=== PATIENT | female | born 1985 | race Caucasian/White ===

== ENCOUNTER 2020-02-02 19:39 | Inpatient (IN) | payer OTHER, SELFPAY ==
[2020-02-02 21:08] LABS: Urine Bacteria NONE SEEN /HPF (<20); Urine Culture Reflex Order REFLEXED; Urine Mucus 1+ /HPF (NONE SEEN); Urine RBC NONE SEEN /HPF (NONE SEEN)
[2020-02-02 21:09] LABS: Urine Blood NEGATIVE (NEG); Urine Glucose NEGATIVE (NEG); Urine Protein NEGATIVE (NEG); Urine Specific Gravity 1.015 (1.005-1.030)
[2020-02-02 21:20] LABS: Absolute Lymphocytes (CBC) 2.2 K/uL (0.7-4.9); Basophils % 0.6 % (0-1.3); Hematocrit 32.3 % (36.0-45.0); Lymphocytes % 15.5 % (15.3-44.8); MPV 8.2 fL (7.6-11.3)
[2020-02-02 21:38] LABS: ALT/SGPT 22 U/L (12-78); AST/SGOT 11 U/L (15-37); Albumin 3.5 g/dL (3.4-5.0); Alkaline Phosphatase 92 U/L (45-117); BUN Blood Urea Nitrogen 5 mg/dL (7-18); Bicarbonate 30 mmol/L (21-32); Bilirubin Direct < 0.1 mg/dL (0-0.2); Bilirubin Total 0.2 mg/dL (0.2-1.0); Glucose Level 95 mg/dL (74-106); Lipase 45 U/L (73-393); Protein, Total 7.9 g/dL (6.4-8.2); Sodium Level 137 mmol/L (136-145)
[2020-02-02] MEDS ORDERED: MORPHINE 4 MG/ML SYR ONE ×2 (21:40→23:19)
[2020-02-02] MEDS ORDERED: ONDANSETRON 4 MG/2 ML VIAL ONE (21:40)
[2020-02-02] MEDS ORDERED: PIPER/TAZO/NS 3.375gm 3.375 GM/100 ML BAG ONE (23:04)
--- NOTE | 2020-02-02 23:12 | EDPHYS ---
Physician Documentation [facility] Name: Samantha Hutchison Age: 34 yrs Sex: Female : 1985 Arrival Date: 02/02/2020 Time: 19:43 Bed 15 Private MD: ED Physician Matthew Carmona HPI: 02/01 21:30 This 34 yrs old Female presents to ER via Ambulatory with complaints of Side cp Pain, Fever. 21:30 The patient presents with abdominal pain in the right upper quadrant, right lower cp quadrant. 21:30 Onset: The symptoms/episode began/occurred 5 day(s) ago. Associated signs and symptoms: cp Pertinent positives: fever, Pertinent negatives: chest pain, constipation, diarrhea, dysuria, vomiting. The symptoms are described as constant. 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 - Social history:: Smoking status: Patient reports the use of cigarette tobacco products, smokes one-half pack cigarettes per day. ROS: 21:35 Constitutional: Negative for body aches, chills, fever, poor PO intake. cp 21:35 Eyes: Negative for injury, pain, redness, and discharge. cp 21:35 ENT: Negative for drainage from ear(s), ear pain, sore throat, difficulty swallowing, difficulty handling secretions. 21:35 Cardiovascular: Negative for chest pain. 21:35 Respiratory: Negative for cough, shortness of breath, wheezing. 21:35 Abdomen/GI: Positive for abdominal pain, Negative for vomiting, diarrhea, constipation, black/tarry stool, rectal bleeding. 21:35 Back: Positive for radiated pain, Negative for injury or acute deformity. 21:35 : Negative for urinary symptoms, vaginal bleeding, vaginal discharge. 21:35 Neuro: Negative for altered mental status, headache, weakness. 21:35 All other systems are negative. Exam: 21:45 Constitutional: The patient appears in no acute distress, alert, awake, non-toxic, well cp developed, well nourished, uncomfortable. 21:45 Head/Face: Normocephalic, atraumatic. cp 21:45 Eyes: Periorbital structures: appear normal, Conjunctiva: normal, no exudate, no injection, Sclera: no appreciated abnormality, Lids and lashes: appear normal, bilaterally. 21:45 ENT: External ear(s): are unremarkable, Nose: is normal, Mouth: Lips: moist, Oral mucosa: pink and intact, moist, Posterior pharynx: Airway: no evidence of obstruction, patent. 21:45 Chest/axilla: Inspection: normal, Palpation: is normal, no crepitus, no tenderness. 21:45 Cardiovascular: Rate: tachycardic, Rhythm: regular. 21:45 Respiratory: the patient does not display signs of respiratory distress, Respirations: normal, no use of accessory muscles, labored breathing, is not present, Breath sounds: are clear throughout, no decreased breath sounds, no stridor, no wheezing. 21:45 Abdomen/GI: Inspection: obese Bowel sounds: active, all quadrants, Palpation: soft, in all quadrants, moderate abdominal tenderness, in the right upper quadrant and right lower quadrant, rebound tenderness, is not appreciated, voluntary guarding, is elicited in the right upper quadrant and right lower quadrant, involuntary guarding, is not appreciated. 21:45 Back: pain, that is moderate, of the right mid back. 21:45 Skin: cellulitis, is not appreciated, no rash present. Vital Signs: 19:56 BP 143 / 89; Pulse 120; Resp 18 S; Temp 99.4(O); Pulse Ox 99% on R/A; Weight 136.08 kg bb (R); Height 5 ft. 6 in. (167.64 cm) (R); Pain 7/10; 21:30 BP 110 / 71; Pulse 108; Resp 18; Pulse Ox 100% on R/A; mg2 23:30 BP 121 / 83; Pulse 102; Resp 18; Pulse Ox 100% on R/A; mg2 02/02 00:41 BP 131 / 109; Pulse 98; Resp 18; Temp 99.2; Pulse Ox 100% ; mg2 02/01 19:56 Body Mass Index 48.42 (136.08 kg, 167.64 cm) bb MDM: 02/01 20:59 Patient medically screened. cp 21:30 Differential diagnosis: appendicitis, cholecystitis, Cholelithiasis, pancreatitis, cp Peptic Ulcer Disease, Perf. Duodenal Ulcer, Ureterolithiasis, urinary tract infection. 22:57 Data reviewed: vital signs, nurses notes, lab test result(s), radiologic studies, CT cp scan, I have discussed the patient's presentation/case with the attending Emergency Department Physician; and as a result, I will admit patient. 23:10 Physician consultation: Tomer Plasencia MD was called at 23:10, was contacted at 23:10, regarding admission, to the medical/surgical unit. patient's condition. 02/01 20:15 Order name: Basic Metabolic Panel tw 02/01 20:15 Order name: CBC with Diff; Complete Time: 23:54 tw 02/01 21:52 Interpretation: Normal except: WBC 14.2; HGB 9.8; HCT 32.3; MCV 71.7; MCH 21.8; MCHC cp 30.4; RDW 17.8; BENITEZ% 76.9; NEUT A 11.0. 02/01 20:15 Order name: Creatinine for Radiology; Complete Time: 21:52 [facility] 02/01 20:15 Order name: Hepatic Function; Complete Time: 21:52 [facility] 02/01 21:52 Interpretation: Normal except: AST 11; GLOB 4.4; A/G 0.8. 02/01 20:15 Order name: Lipase; Complete Time: 21:52 [facility] 02/01 21:53 Interpretation: LIP 45; Reviewed. 02/01 20:15 Order name: Basic Metabolic Panel; Complete Time: 21:52 [facility] 02/01 22:13 Interpretation: Normal except: BUN 5. cp 02/01 20:19 Order name: Urine Microscopic Only; Complete Time: 21:23 02/01 21:23 Interpretation: Normal except: UWBC 5-10; SQEPI 5-10. 02/01 20:45 Order name: Urine Dipstick--Ancillary (enter results); Complete Time: 21:23 pr5 02/01 21:53 Interpretation: Normal except: UESTR TRACE. 02/01 20:45 Order name: Urine --Ancillary (enter results); Complete Time: 21:23 pr5 02/01 21:10 Order name: Urine Culture [facility] 02/01 22:47 Order name: CBC Smear Scan; Complete Time: 23:54 [facility] 02/01 23:46 Order name: Basic Metabolic Panel [facility] 02/01 23:46 Order name: Basic Metabolic Panel [facility] 02/01 23:46 Order name: CBC with Automated Diff EDMS 02/01 20:15 Order name: IV Saline Lock; Complete Time: 21:08 tw4 02/01 20:15 Order name: Labs collected and sent; Complete Time: 21:08 tw4 02/01 20:19 Order name: Urine Dipstick-Ancillary (obtain specimen); Complete Time: 20:43 cp 02/01 20:19 Order name: Urine Test (obtain specimen); Complete Time: 20:43 cp 02/01 21:25 Order name: CT Abd/Pelvis - IV Contrast Only cp 02/01 23:46 Order name: NPO EDMS 02/01 23:46 Order name: CBC with Automated Diff EDMS 02/01 23:46 Order name: Lipase EDMS 02/01 23:46 Order name: Lipase EDMS 02/01 23:46 Order name: Liver (Hepatic) Function EDMS 02/01 23:46 Order name: Liver (Hepatic) Function EDMS 02/01 23:39 Order name: NPO; Complete Time: 23:42 cp Administered Medications: 21:38 Drug: morphine 4 mg Route: IVP; Site: right antecubital; mg2 22:30 Follow up: Response: No adverse reaction; Marked relief of symptoms; Pain is decreased mg2 21:38 Drug: Zofran (Ondansetron) 4 mg Route: IVP; Site: right antecubital; mg2 23:44 Follow up: Response: No adverse reaction; Marked relief of symptoms mg2 23:23 Drug: Zosyn 3.375 grams Route: IVPB; Infused Over: 60 mins; Site: right antecubital; mg2 02/02 00:44 Follow up: Response: No adverse reaction; IV Status: Completed infusion mg2 02/01 23:23 Drug: NS 0.9% 1000 ml Route: IV; Rate: 1 bolus; Site: right antecubital; mg2 02/02 00:43 Follow up: Response: No adverse reaction; IV Status: Completed infusion; IV Intake: mg2 1000ml 02/01 23:24 Drug: morphine 4 mg Route: IVP; Site: right antecubital; mg2 02/02 00:43 Follow up: Response: No adverse reaction; Marked relief of symptoms; Pain is decreased mg2 Disposition: 11:21 Co-signature as Attending Physician, Matthew Carmona MD I agree with the assessment and tw4 plan of care. Disposition: 02/02/20 23:11 Hospitalization ordered by Tomer Plasencia for Observation. Preliminary diagnosis is Acute appendicitis. - Bed requested for Telemetry/MedSurg (observation). - Status is Observation. mg2 - Condition is Stable. - Problem is new. - Symptoms have improved. Signatures: Dispatcher [employer] EDMS Shira Valdivia RN RN bb Adele London RN RN tl1 Christ Wood PA PA Matthew De La Cruz MD MD tw4 Greg Mcdermott RN RN mg2 Corrections: (The following items were deleted from the chart) 00:23 02/01 23:11 Hospitalization Ordered by Tomer Plasencia MD for Observation. Preliminary tl1 diagnosis is Acute appendicitis. Bed requested for Telemetry/MedSurg (observation). Status is Observation. Condition is Stable. Problem is new. Symptoms have improved. cp 02/02 01:36 00:23 02/02/2020 23:11 Hospitalization Ordered by Tomer Plasencia MD for Observation. mg2 Preliminary diagnosis is Acute appendicitis. Bed requested for Telemetry/MedSurg (observation). Status is Observation. Condition is Stable. Problem is new. Symptoms have improved. tl1
--- NOTE | 2020-02-02 23:12 | ER ---
Nurse's Notes [facility] Name: Samantha Hutchison Age: 34 yrs Sex: Female : 1985 Arrival Date: 02/02/2020 Time: 19:43 Bed 15 Private MD: Diagnosis: Acute appendicitis Presentation: 02/01 19:56 Chief complaint: Patient states: she is having right flank pain x 5 days which shoots bb downward and is also having some urgency with urination pt was also tested for Covid today at [facility]. Coronavirus screen: Proceed with normal triage. Ebola Screen: No symptoms or risks identified at this time. Initial Sepsis Screen: Does the patient meet any 2 criteria? No. Patient's initial sepsis screen is negative. Does the patient have a suspected source of infection? No. Patient's initial sepsis screen is negative. Risk Assessment: Do you want to hurt yourself or someone else? Patient reports no desire to harm self or others. Onset of symptoms was January 28, 2020. 19:56 Method Of Arrival: Ambulatory bb 19:56 Acuity: TYRELL 3 bb Triage Assessment: 02/02 00:42 General: Behavior is calm, cooperative. 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 - Social history:: Smoking status: Patient reports the use of cigarette tobacco products, smokes one-half pack cigarettes per day. Screenin:55 Abuse screen: Denies threats or abuse. Denies injuries from another. Nutritional mg2 screening: No deficits noted. Tuberculosis screening: No symptoms or risk factors identified. Fall Risk IV access (20 points). Assessment: 21:30 General: Appears in no apparent distress. comfortable. Pain: Complains of pain in mg2 abdomen. Neuro: Level of Consciousness is awake, Oriented to person, place, time, situation. Cardiovascular: Capillary refill. Respiratory: Airway is patent Respiratory effort is even, unlabored, Respiratory pattern is regular, symmetrical. GI: Reports lower abdominal pain, nausea, vomiting. : No signs and/or symptoms were reported regarding the genitourinary system. EENT: No signs and/or symptoms were reported regarding the EENT system. Derm: Skin is intact, is healthy with good turgor, Skin is pink, warm \T\ dry. normal. Musculoskeletal: Circulation, motion, and sensation intact. Capillary refill. 22:30 Reassessment: Patient appears in no apparent distress at this time. Patient and/or mg2 family updated on plan of care and expected duration. Pain level reassessed. Patient is alert, oriented x 3, equal unlabored respirations, skin warm/dry/pink. 23:43 Reassessment: Patient appears in no apparent distress at this time. Patient and/or mg2 family updated on plan of care and expected duration. Pain level reassessed. Patient is alert, oriented x 3, equal unlabored respirations, skin warm/dry/pink. 02/02 00:42 Reassessment: primary nurse will call me back to receive the report. mg2 Vital Signs: 02/01 19:56 BP 143 / 89; Pulse 120; Resp 18 S; Temp 99.4(O); Pulse Ox 99% on R/A; Weight 136.08 kg bb (R); Height 5 ft. 6 in. (167.64 cm) (R); Pain 7/10; 21:30 BP 110 / 71; Pulse 108; Resp 18; Pulse Ox 100% on R/A; mg2 23:30 BP 121 / 83; Pulse 102; Resp 18; Pulse Ox 100% on R/A; mg2 02/02 00:41 BP 131 / 109; Pulse 98; Resp 18; Temp 99.2; Pulse Ox 100% ; mg2 02/01 19:56 Body Mass Index 48.42 (136.08 kg, 167.64 cm) bb ED Course: 02/01 19:43 Patient arrived in ED. ds1 19:59 Triage completed. bb 19:59 Arm band placed on Patient placed in an exam room, on a stretcher, on pulse oximetry. bb 20:37 Christ Wood PA is PHCP. cp 20:37 Matthew Carmona MD is Attending Physician. cp 20:52 Greg Mcdermott, CATHY is Primary Nurse. mg2 21:27 Radiology exam delayed due to lab results not completed at this time. (BUN/Creatinine). vm2 21:30 Inserted saline lock: 20 gauge in right antecubital area, using aseptic technique. mg2 Blood collected. 22:05 CT Abd/Pelvis - IV Contrast Only In Process Unspecified. EDMS 22:55 No provider procedures requiring assistance completed. mg2 23:10 Tomer Plasencia MD is Hospitalizing Provider. cp 23:43 Patient has correct armband on for positive identification. Placed in gown. Bed in low mg2 position. Side rails up X2. Pulse ox on. NIBP on. Door closed. Warm blanket given. 02/02 01:13 Patient admitted, IV remains in place. mg2 Administered Medications: 02/01 21:38 Drug: morphine 4 mg Route: IVP; Site: right antecubital; mg2 22:30 Follow up: Response: No adverse reaction; Marked relief of symptoms; Pain is decreased mg2 21:38 Drug: Zofran (Ondansetron) 4 mg Route: IVP; Site: right antecubital; mg2 23:44 Follow up: Response: No adverse reaction; Marked relief of symptoms mg2 23:23 Drug: Zosyn 3.375 grams Route: IVPB; Infused Over: 60 mins; Site: right antecubital; mg2 02/02 00:44 Follow up: Response: No adverse reaction; IV Status: Completed infusion mg2 02/01 23:23 Drug: NS 0.9% 1000 ml Route: IV; Rate: 1 bolus; Site: right antecubital; mg2 02/02 00:43 Follow up: Response: No adverse reaction; IV Status: Completed infusion; IV Intake: mg2 1000ml 02/01 23:24 Drug: morphine 4 mg Route: IVP; Site: right antecubital; mg2 02/02 00:43 Follow up: Response: No adverse reaction; Marked relief of symptoms; Pain is decreased mg2 Intake: 00:43 IV: 1000ml; Total: 1000ml. mg2 Outcome: 02/01 23:11 Decision to Hospitalize by Provider. 02/02 01:13 Admitted to Med/surg accompanied by nurse, via wheelchair, room 212, with chart, Report mg2 called to CATHY White Condition: stable Instructed on the need for admit, Demonstrated understanding of instructions. 01:36 Patient left the ED. mg2 Signatures: Dispatcher [employer] EDDC Melissa Melton ds1 Shira Valdivia RN RN Christ Pan PA PA [facility] Greg Mcdermott RN RN mg2 Corrections: (The following items were deleted from the chart) 02/01 22:55 20:30 Inserted saline lock: 20 gauge in right antecubital area, using aseptic mg2 technique. Blood collected. mg2
[2020-02-02] MEDS ORDERED: NA CHLORIDE 0.9% 1,000 ML ONE (23:19)
[2020-02-02 23:36] LABS: Blood Morphology Comment NOTED (NOT SEEN); Hypochromasia 1+; Platelet Estimate ADEQ; Urine White Blood Cell Casts OK
[2020-02-02] MEDS ORDERED: MORPHINE 4 MG/ML SYR IV PRN (23:43)
[2020-02-02] MEDS ORDERED: ONDANSETRON 4 MG/2 ML VIAL IV PRN (23:43)
[2020-02-03 02:02] VITALS: BMI 48.6
[2020-02-03] MEDS: HYDROMORPHONE HCL 1 MG/ML INJ IV PRN ×2 (03:23→07:41)
[2020-02-03] MEDS: D5 0.45 NS 1,000 ML IV SCH ×4 (03:26→23:25)
[2020-02-03 04:26] LABS: Absolute Lymphocytes (CBC) 2.3 K/uL (0.7-4.9); Basophils % 0.2 % (0-1.3); Hematocrit 30.1 % (36.0-45.0); Lymphocytes % 17.2 % (15.3-44.8); MPV 8.2 fL (7.6-11.3)
[2020-02-03 04:41] LABS: ALT/SGPT 21 U/L (12-78); AST/SGOT 14 U/L (15-37); Albumin 3.3 g/dL (3.4-5.0); Alkaline Phosphatase 88 U/L (45-117); BUN Blood Urea Nitrogen 5 mg/dL (7-18); Bicarbonate 30 mmol/L (21-32); Bilirubin Direct 0.1 mg/dL (0-0.2); Bilirubin Total 0.4 mg/dL (0.2-1.0); Glucose Level 112 mg/dL (74-106); Lipase 32 U/L (73-393); Potassium 3.9 mmol/L (3.5-5.1); Protein, Total 7.5 g/dL (6.4-8.2); Sodium Level 139 mmol/L (136-145)
[2020-02-03] MEDS ORDERED: PIPER/TAZO/NS 3.375gm 3.375 GM/100 ML BAG ONE (05:25)
[2020-02-03] MEDS ORDERED: PIPER/TAZO/NS 3.375gm 3.375 GM/100 ML BAG IVPB SCH (06:00)
[2020-02-03] MEDS ORDERED: SUCCINYLCHOLINE 20 MG/ML (10 ML) IV ONE (08:21)
[2020-02-03] MEDS ORDERED: Ringers Lactate 1,000 ML IV ONE ×2 (08:27→09:52)
[2020-02-03] MEDS ORDERED: LIDOCAINE 2% MPF 5 ML VIAL ONE (08:30)
[2020-02-03] MEDS ORDERED: dexAMETHasone 10 MG/ML VIAL ONE (08:30)
[2020-02-03] MEDS ORDERED: propofoL 200 MG/20 ML VIAL IV ONE (08:30)
[2020-02-03] MEDS ORDERED: MIDAZOLAM HCL 2 MG/2 ML INJ ONE (08:30)
[2020-02-03] MEDS ORDERED: ROCURONIUM 50 MG/5 ML VIAL IV ONE (08:31)
[2020-02-03] MEDS ORDERED: FENTANYL CITR 250 MCG/5 ML ONE (08:31)
[2020-02-03] MEDS ORDERED: ONDANSETRON 4 MG/2 ML VIAL ONE (08:32)
--- NOTE | 2020-02-03 08:46 | P.HP ---
Date of Service: 02/03/20 PC: This 34-year-old female presents emergency room with severe abdominal pain since last Friday for diagnosis and treatment. HPC: Patient has felt on well for the last few days. Has had pain in the right lower portion of her abdomen. Intensified to the point where she had to come for evaluation. Hurts when she tries to walk, or if 1 presses on her abdomen. PMH: Morbid obesity PSHx: 2 prior C-sections SOC: No known allergies SYS REVIEW: No cough, wheeze, shortness of breath. No chest pain or palpitations. No urinary complaints. O/E awake alert vital signs are stable HEENT: Not jaundice Chest: Chest movement equal bilaterally ABD: Tender with guarding in the right lower quadrant LOCO: Intact DATA: Elevated white cell count, CT scan demonstrates acute appendicitis IMPRESSION: Acute abdomen with appendicitis PLAN: Will take to the operating room for laparoscopic possible open appendectomy. The risks of this procedure have been discussed. The possibility of bleeding, infection, injury to blood vessels and intestines have been described. The possible need for an open and/or further surgeries and procedures was discussed. She understands and wants us to proceed.
[2020-02-03] MEDS ORDERED: Phenylephrine HCl 10 MG/ML 1 ML VIAL ONE (09:13)
[2020-02-03] MEDS ORDERED: NS 0.9% VIAL 20 ML ONE (09:13)
[2020-02-03] MEDS ORDERED: KETOROLAC 30 MG/ML INJ ONE (09:40)
--- NOTE | 2020-02-03 09:56 | RAD REPORT ---
EXAM DESCRIPTION: Abdomen Pelvis W Contrast CLINICAL HISTORY: 34-year-old female with right-sided abdominal pain, flank pain for five days with urinary urgency. COMPARISON: No prior imaging available for comparison. TECHNIQUE: CT of the abdomen and pelvis was performed following intravenous administration of contra st. Oral contrast was not administered. Multiplanar reformatted images were provided. This exam was p erformed according to our departmental dose optimization program which includes use of automated expo sure control, adjustment of the mA and/or kV according to patient size and/or use of iterative recons truction technique. FINDINGS: Chest: Evaluation through the lung bases reveals no focal opacity, pleural effusion or pne umothorax. Heart size is within normal limits. No pericardial effusion. Abdomen and pelvis: The liver, gallbladder, pancreas, spleen, bilateral kidneys and bilateral adrenal glands are within normal limits. The vessels are patent and normal in caliber. No abdominopelvic lymph nodes are noted to be pathologically enlarged by CT measurement criteria. The bowel is within normal limits without abnormal bowel wall thickness or bowel dilation. No free air. No organizing abdominopelvic fluid collections. The appendix is identified, posterior ce hermelindo in location, directed downward measuring up to 8 mm (series 503, image 49) with diffuse volume of pericecal and periappendiceal stranding compatible with acute appendicitis. Enlarged and lobulated appearing uterus with focus of peripheral calcification within the posterior u terine fundus measuring up to 3.9 cm compatible with uterine leiomyoma. The osseous structures are within normal limits. IMPRESSION: 1. Acute appendicitis as detailed above. Electronically signed by: Belinda Licona MD 02/02/2020 10:37 PM CDT Due to temporary technical issues with the PACS/Fluency reporting system, reports are being signed by the in house radiologist as a courtesy to ensure prompt reporting. The interpreting radiologist is f yanaly responsible for the content of the report.
[2020-02-03] MEDS ORDERED: GLYCOPYRROLATE 0.2 MG/ML SYR ONE (10:02)
[2020-02-03] MEDS ORDERED: NEOSTIGMINE 1 MG/ML -5 ML ONE (10:03)
[2020-02-03] MEDS ORDERED: PROMETHAZINE INJ 25 MG/ML AMP ONE (10:04)
--- NOTE | 2020-02-03 10:18 | P.OP ---
Preoperative diagnosis: Acute abdomen with appendicitis Postoperative diagnosis: The same with appendicitis, tubo-ovarian abscess Primary procedure: Laparoscopic appendectomy Secondary procedure: Drainage of pelvic abscess Anesthesia: General Estimated blood loss: Less than 20 cc Specimen: 1 appendix Operative Technique: The patient brought to the operating room placed supine on the table. After the induction of adequate general endotracheal anesthesia, there the abdomen was prepped with a DuraPrep solution, and she was draped in usual aseptic manner. A subumbilical incision was made. This brought down through the skin and subcutaneous tissue. The Visiport was now used to enter the peritoneal cavity and created pneumoperitoneum to approximately 12 mm of mercury. Under direct vision another 5 mm trocar was placed in the right upper quadrant, and another in the lower midline. Attention was turned towards right lower quadrant. With the patient placed in reverse Trendelenburg and tilted to the left were able to visualize this area. We could see the cecum. Coming off of that was the appendix itself. This came down to an intense inflammatory process against the right lateral sidewall of the pelvis. The base of the appendix did not seem to be involved in this and to get control before we entry this inflammatory process and appendectomy was done. A window was made in the mesentery of the appendix. The linear Stapler was now introduced into the peritoneal cavity. A was placed across the junction of the cecum with the appendix and fired. Attention was now turned towards the mesentery of the appendix and its vasculature. This area was now crushed with daily grasper. A linear Stapler with a vascular load was now placed across this area. The instrument was fired. The appendix now having been isolated was carefully dissected off of the pelvic wall. We were able to remove it down to what appeared to be the tip. This was placed in Endo-Catch and brought away and brought out through the emboli kiss and sent for histopathology. Turning back to this area we could see that there was purulent material coming from this area on the lateral sidewall the pelvis. This was just gently dissected out with appeared to be the fallopian tube itself with purulent material coming from it. The tube itself was quite firm further of portion just distal to the fimbria. We were able to make a small incision into this area but no further purulent material was obtained. It appear the dura manipulation that this abscess was drained. There was no further purulent m aterial noted. The pus was creamy white in color. We were unable to get a suitable specimen for culture. At this point the right lower quadrant was irrigated with a copious amount of saline solution until the effluent was clear. Adequate hemostasis had been ensured. The umbilical trocar site was now approximated using the Endo Close an absorbable suture. The pneumoperitoneum was now collapsed, the patient returned to the neutral position on the OR table, and frank applied to the skin. At the end of the procedure she was stable when sent to the recovery room. Needle sponge instrument count were correct. Complications: None Transferred to: Recovery Room Condition: Good
[2020-02-03] MEDS: HYDROMORPHONE HCL 1 MG/ML INJ ONE ×2 (10:41→10:54)
[2020-02-03] MEDS: HYDROCODONE/APAP 7.5/325 MG TAB PO PRN ×2 (11:36→17:20)
[2020-02-03] MEDS: PIPER/TAZO/NS 3.375gm 3.375 GM/100 ML BAG IVPB SCH ×2 (12:07→16:34)
[2020-02-03] MEDS: MORPHINE 4 MG/ML SYR IV PRN ×3 (15:09→22:49)
[2020-02-03] MEDS: METRONIDAZOLE 500mg IVPB 500 MG/100 ML BAG IV SCH (15:11)
[2020-02-04] MEDS: PIPER/TAZO/NS 3.375gm 3.375 GM/100 ML BAG IVPB SCH ×2 (00:06→08:42)
[2020-02-04] MEDS: HYDROCODONE/APAP 7.5/325 MG TAB PO PRN ×3 (00:06→12:17)
[2020-02-04] MEDS: METRONIDAZOLE 500mg IVPB 500 MG/100 ML BAG IV SCH ×2 (00:06→08:42)
[2020-02-04 04:00] VITALS: TEMP 97.9
[2020-02-04] MEDS: MORPHINE 4 MG/ML SYR IV PRN ×2 (04:30→08:44)
[2020-02-04] MEDS: D5 0.45 NS 1,000 ML IV SCH (06:35)
[2020-02-04 09:36] VITALS: O2SAT 98
--- NOTE | 2020-02-04 12:07 | P.PN ---
Date of Service: 02/04/20 S: Patient feels much better today, just tired as she did not sleep very well. Abdominal pain almost gone, just some muscle soreness today. O: Incisions are clean clinically looks much improved A: Stable status post laparoscopic appendectomy and drainage of intra-abdominal abscess P: I discussed the surgical findings with the patient. We mention the fact that she had fibroids, that she possibly had a tubo-ovarian abscess. She reminded me that she had her tubes tied. She will be discharged on p.o. antibiotics for 1 week, as well as hydrocodone for pain. The side effects of this were discussed. She understands. She will see me next , any questions or problems she will return to the emergency room were contact me.
[2020-02-04 12:11] VITALS: BP 108/58
--- NOTE | 2020-02-04 12:11 | P.DS ---
Admission Date: 02/03/20 Discharge Date: 02/04/20 Discharge Condition: GOOD Reason for Admission: Acute postoperative abdominal pain Procedures: Laparoscopic appendectomy and drainage of pelvic abscess Brief History of Present Illness: The patient had not been feeling well for the last 5 days. She finally presented to the emergency room with severe right lower quadrant abdominal pain. Hospital Course: The patient presents emergency room with severe right lower quadrant abdominal pain. A CT scan showed appendicitis. This was confirmed on clinical diagnosis with pain in guarding in the right lower quadrant the operating were she under went a laparoscopic appendectomy. At the time of surgery we found that the appendix, biting on top of the fallopian tube. As we dissected off the appendix with purulent material came from the tube itself consistent with a tubo-ovarian abscess. An appendectomy was done, the abscess drained. She was admitted postoperatively for observation pain control as well as IV antibiotics. Today she is up ambulating, her pain issues have been resolved. She is well controlled on oral medication. She will be discharged, kept on 1 week of antibiotic therapy, as well as pain medicine. She will follow up with me next . During the time of the admission she had also had a covered test run. The results are not back yet. She has been advised to isolate until we have the results. However she is afebrile, no respiratory symptoms, and generally is much improved since she initially presented. Vital Signs/Physical Exam: Temp Pulse Resp BP Pulse Ox 97.9 F 85 17 112/66 96 02/04/20 08:00 02/04/20 08:00 02/04/20 09:14 02/04/20 08:00 02/04/20 09:14 Laboratory Data at Discharge: WBC 13.3 K/uL (4.3-10.9) H 02/03/20 03:47 Hgb 9.1 g/dL (12.0-15.0) L 02/03/20 03:47 Hct 30.1 % (36.0-45.0) L 02/03/20 03:47 Plt Count 319 K/uL (152-406) 02/03/20 03:47 Sodium 139 mmol/L (136-145) 02/03/20 03:47 Potassium 3.9 mmol/L (3.5-5.1) 02/03/20 03:47 BUN 5 mg/dL (7-18) L 02/03/20 03:47 Creatinine 0.68 mg/dL (0.55-1.3) 02/03/20 03:47 Glucose 112 mg/dL (74-106) H 02/03/20 03:47 Total Bilirubin 0.4 mg/dL (0.2-1.0) 02/03/20 03:47 AST 14 U/L (15-37) L 02/03/20 03:47 ALT 21 U/L (12-78) 02/03/20 03:47 Alkaline Phosphatase 88 U/L (45-117) 02/03/20 03:47 Lipase 32 U/L (73-393) L 02/03/20 03:47 Home Medications: clonazePAM [Klonopin*] 1 tab PO BEDTIME 02/03/20 levoFLOXacin [Levaquin] 500 mg PO DAILY #10 tab 02/04/20 metroNIDAZOLE [Flagyl] 500 mg PO Q8H #30 tablet 02/04/20 New Medications: metroNIDAZOLE [Flagyl] 500 mg PO Q8H #30 tablet levoFLOXacin [Levaquin] 500 mg PO DAILY #10 tab Followup: Pradeep Malin MD [Primary Care Provider] - (Call to schedule appointment.) Tomer Plasencia MD [ACTIVE - CAN ADMIT] -
== END 2020-02-04 12:43 | disposition home or self-care (01) | DRG 343 ==
LOC: ER 19:39 → ERHOLD 23:59 → 2ND 02-03 01:11 → 4TH 02-03 10:11 → OBSVTOIN 02-03 11:32
PROVIDERS: ADMIT Surgery; ATTEND Surgery
PROC: 0W9J4ZZ Drainage of Pelvic Cavity, Percutaneous Endoscopic Approach (ICD-10-PCS; 2020-02-03)
PROC: 0DTJ4ZZ Resection of Appendix, Percutaneous Endoscopic Approach (ICD-10-PCS; principal; 2020-02-03 09:00)
DX: K35.80 Unspecified acute appendicitis (principal); N70.92 Oophoritis, unspecified; N73.9 Female pelvic inflammatory disease, unspecified; Z79.890 Hormone replacement therapy; Z20.828 Contact with and (suspected) exposure to other viral communicable diseases; Z79.899 Other long term (current) drug therapy; Z11.59 Encounter for screening for other viral diseases
CPT/HCPCS: 36415; 74177; 80048; 80076; 81003; 81015; 81025; 83690; 85025; 87086; 87088; 88304; 96365; 96375; 99285; G0378; J0330; J1100; J1170; J2250; J2370; J2405; J2543; J2550; J2704; J2710; J3010; J7030; J7120; J7799; Q9967; U0002

== ENCOUNTER 2020-03-10 10:50 | Emergency (ER) | payer SELFPAY ==
[2020-03-10 11:37] LABS: Urine Blood NEGATIVE (NEG); Urine Glucose NEGATIVE (NEG); Urine Protein NEGATIVE (NEG); Urine Specific Gravity >1.030 (1.005-1.030); Urine pH 5.5 (5.0-7.0)
[2020-03-10 12:31] LABS: Absolute Lymphocytes (CBC) 1.8 K/uL (0.7-4.9); Basophils % 0.4 % (0-1.3); Hematocrit 31.2 % (36.0-45.0); Lymphocytes % 18.6 % (15.3-44.8); MPV 8.6 fL (7.6-11.3); RBC Red Blood Cell Count 4.51 M/uL (3.86-4.86)
[2020-03-10 12:53] LABS: ALT/SGPT 43 U/L (12-78); AST/SGOT 21 U/L (15-37); Albumin 3.7 g/dL (3.4-5.0); Alkaline Phosphatase 64 U/L (45-117); BUN Blood Urea Nitrogen 6 mg/dL (7-18); Bicarbonate 27 mmol/L (21-32); Bilirubin Direct < 0.1 mg/dL (0-0.2); Bilirubin Total 0.3 mg/dL (0.2-1.0); Glucose Level 92 mg/dL (74-106); Lipase 63 U/L (73-393); Potassium 3.6 mmol/L (3.5-5.1); Protein, Total 7.5 g/dL (6.4-8.2); Sodium Level 139 mmol/L (136-145)
[2020-03-10 13:15] LABS: Anisocytosis 1+; Blood Morphology Comment NOTED (NOT SEEN); Platelet Estimate ADEQ; Urine White Blood Cell Casts OK
[2020-03-10] MEDS ORDERED: NA CHLORIDE 0.9% 1,000 ML ONE (13:36)
[2020-03-10] MEDS ORDERED: MORPHINE 2 MG/ML SYR ONE ×2 (13:46→15:01)
[2020-03-10] MEDS ORDERED: ONDANSETRON 4 MG/2 ML VIAL ONE (13:46)
--- NOTE | 2020-03-10 14:31 | RAD REPORT ---
EXAM DESCRIPTION: CT - Abdomen Pelvis W Contrast - 03/10/2020 2:06 pm CLINICAL HISTORY: Abdominal pain COMPARISON: 01/2020 TECHNIQUE: Computed axial tomography of the abdomen pelvis was obtained. 100 cc Isovue-300 was admin istered intravenously. Oral contrast was not requested which limits evaluation of bowel. All CT scans are performed using dose optimization technique as appropriate and may include automated exposure control or mA/KV adjustment according to patient size. FINDINGS: The liver, spleen, pancreas, adrenal and kidneys appear unremarkable. There is no evidence of diverticulitis. The wall of portions of the colon appears mildly thickened. Fibroid uterus. Small amount of free fluid IMPRESSION: Mild thickening of the wall of portions of the colon probably indicating a mild colitis
[2020-03-10] MEDS ORDERED: CIPROFLOXACIN 400mg IV 400 MG/200 ML BAG IV ONE (14:55)
[2020-03-10] MEDS ORDERED: METRONIDAZOLE 500mg IVPB 500 MG/100 ML BAG IV ONE (14:55)
[2020-03-10] MEDS ORDERED: MORPHINE 4 MG/ML SYR ONE (16:25)
[2020-03-10 17:38] VITALS: TEMP 99
[2020-03-10 17:45] VITALS: O2SAT 98
[2020-03-10 17:47] VITALS: BP 105/79
--- NOTE | 2020-03-13 17:04 | ER ---
Nurse's Notes [facility] Name: Samantha Hutchison Age: 35 yrs Sex: Female : 1985 Arrival Date: 03/10/2020 Time: 10:52 Bed 19 Private MD: Pradeep Malin Diagnosis: Diarrhea, unspecified;Other and unspecified noninfective gastroenteritis and colitis;Left sided colitis without complications Presentation: 03/10 11:05 Chief complaint: Patient states: Intermittent diarrhea x approx 2 weeks, occasional ph bright red blood in stool, also reports nausea and abdominal pain in umbilical area that radiates to LLQ, denies fever, states, " I had my appendix removed in January and I had a pretty bad abscess in my intestines.". Coronavirus screen: Patient denies a cough. Patient denies shortness of breath or difficulty breathing. Patient reports a measured and/or subjective temperature greater than 100.4F. Patient denies travel on a cruise ship or to a country the [facility] currently lists as an affected area. Patient denies contact with known and/or suspected case of COVID-19. Ebola Screen: No symptoms or risks identified at this time. Initial Sepsis Screen: Does the patient meet any 2 criteria? No. Patient's initial sepsis screen is negative. Does the patient have a suspected source of infection? Yes: Acute abdominal pain. Risk Assessment: Do you want to hurt yourself or someone else? Patient reports no desire to harm self or others. Onset of symptoms was March 10, 2020. 11:05 Method Of Arrival: Ambulatory 11:05 Acuity: TYRELL 3 ph COTTON TIPPER: 12:11 [facility] 02/24/2020 ca1 Historical: - Allergies: 11:09 No Known Allergies; ph - Home Meds: 11:09 Klonopin Oral as needed [Active]; ph - PMHx: 11:09 Anxiety; ph - PSHx: 11:09 Appendectomy; ; Tubal ligation; ph - Immunization history:: Adult Immunizations unknown. - Social history:: Smoking status: Patient denies any tobacco usage or history of. Patient/guardian denies using alcohol. Screenin:08 Abuse screen: Denies threats or abuse. Denies injuries from another. Nutritional ca1 screening: No deficits noted. Tuberculosis screening: No symptoms or risk factors identified. Fall Risk IV access (20 points). Assessment: 12:08 General: Appears in no apparent distress. comfortable, Behavior is calm, cooperative, ca1 appropriate for age. Pain: Complains of pain in abdomen Pain radiates to back Pain currently is 7 out of 10 on a pain scale. Quality of pain is described as crampy, Pain began 2 weeks Is intermittent. Neuro: Level of Consciousness is awake, alert, obeys commands, Oriented to person, place, time, situation. Cardiovascular: Heart tones S1 S2 present Capillary refill < 3 seconds Patient's skin is warm and dry. Respiratory: Airway is patent Respiratory effort is even, unlabored, Respiratory pattern is regular, symmetrical, Breath sounds are clear bilaterally. GI: Abdomen is round non-distended, Bowel sounds present X 4 quads. Abd is soft X 4 quads Abdomen is tender to palpation in right upper quadrant and left upper quadrant Reports cramping, diarrhea, nausea, since 2 weeks. : No signs and/or symptoms were reported regarding the genitourinary system. EENT: No signs and/or symptoms were reported regarding the EENT system. Derm: Skin is intact, is healthy with good turgor, Skin is pink, warm \\T\\ dry. Musculoskeletal: Circulation, motion, and sensation intact. Capillary refill < 3 seconds. 13:01 Reassessment: Patient appears in no apparent distress at this time. Patient and/or ca1 family updated on plan of care and expected duration. Pain level reassessed. Patient is alert, oriented x 3, equal unlabored respirations, skin warm/dry/pink. 13:51 Reassessment: Patient appears in no apparent distress at this time. Patient and/or ca1 family updated on plan of care and expected duration. Pain level reassessed. Patient is alert, oriented x 3, equal unlabored respirations, skin warm/dry/pink. 14:50 Reassessment: Patient appears in no apparent distress at this time. Patient and/or ca1 family updated on plan of care and expected duration. Pain level reassessed. Patient is alert, oriented x 3, equal unlabored respirations, skin warm/dry/pink. 15:22 Reassessment: D/C pending IV abx completion. ca1 16:30 Reassessment: Patient appears in no apparent distress at this time. Patient is alert, ca1 oriented x 3, equal unlabored respirations, skin warm/dry/pink. 17:28 Reassessment: IV abx still ongoing. Reassessment: Patient appears in no apparent ca1 distress at this time. Patient is alert, oriented x 3, equal unlabored respirations, skin warm/dry/pink. Vital Signs: 11:05 BP 116 / 90; Pulse 97; Resp 18; Temp 99.0; Pulse Ox 100% on R/A; Weight 125.65 kg; ph Height 5 ft. 5 in. (165.10 cm); Pain 4/10; 12:08 BP 118 / 67; Pulse 89; Resp 17 S; Pulse Ox 98% on R/A; ca1 13:01 BP 105 / 62; Pulse 89; Resp 17 S; Pulse Ox 98% on R/A; ca1 13:51 BP 106 / 80; Pulse 69; Resp 15 S; Pulse Ox 100% on R/A; ca1 14:52 BP 110 / 82; Pulse 82; Resp 16 S; Pulse Ox 99% on R/A; ca1 15:45 BP 103 / 69; Pulse 72; Resp 16 S; Pulse Ox 98% on R/A; ca1 16:40 BP 102 / 73; Pulse 69; Resp 16 S; Pulse Ox 98% on R/A; ca1 17:28 BP 105 / 79; Pulse 76; Resp 16 S; Pulse Ox 98% on R/A; ca1 11:05 Body Mass Index 46.09 (125.65 kg, 165.10 cm) ph ED Course: 10:52 Patient arrived in ED. ag5 10:52 Pradeep Malin MD is Private Physician. ag5 11:08 Triage completed. ph 11:09 Arm band placed on Patient placed in an exam room, on a stretcher. ph 11:57 Peg Duong, RN is Primary Nurse. ca1 11:58 Christ Sams MD is Attending Physician. praful 12:08 Patient has correct armband on for positive identification. Placed in gown. Bed in low ca1 position. Call light in reach. Side rails up X 1. Pulse ox on. NIBP on. Warm blanket given. 12:12 No provider procedures requiring assistance completed. ca1 14:07 CT Abd/Pelvis - IV Contrast Only In Process Unspecified. EDMS 14:51 Pradeep Malin MD is Referral Physician. praful 14:52 Uziel Mejia MD is Referral Physician. praful 16:18 Stool Culture Sent. ca1 16:18 Fecal Leukocyte Stain Sent. ca1 17:30 IV discontinued, intact, bleeding controlled, No redness/swelling at site. Pressure ca1 dressing applied. Administered Medications: 13:31 Drug: NS 0.9% 1000 ml Route: IV; Rate: 1 bolus; Site: right antecubital; ca1 14:44 Follow up: Response: No adverse reaction; IV Status: Completed infusion ca1 13:35 Drug: Zofran (Ondansetron) 4 mg Route: IVP; Site: right antecubital; ca1 14:44 Follow up: Response: No adverse reaction; Pain is decreased; RASS: Alert and Calm (0) ca1 13:37 Drug: morphine 2 mg {Note: RASS - 0.} Route: IVP; Site: right antecubital; ca1 14:44 Follow up: Response: No adverse reaction; Nausea is decreased ca1 14:58 Drug: morphine 2 mg {Note: rass - 0.} Route: IVP; Site: right antecubital; ca1 16:20 Follow up: Response: No adverse reaction; Pain is unchanged, physician notified; RASS: ca1 Alert and Calm (0) 15:00 Drug: Flagyl 500 mg Volume: 100 ml; Route: IVPB; Rate: 200 ml/hr; Infused Over: 30 ca1 mins; Site: right antecubital; 15:29 Follow up: Response: No adverse reaction; IV Status: Completed infusion ca1 15:30 Drug: Cipro 400 mg Volume: 200 ml; Route: IVPB; Infused Over: 60 mins; Site: right ca1 antecubital; 17:00 Follow up: Response: No adverse reaction; IV Status: Completed infusion ca1 16:20 Drug: morphine 4 mg {Note: rass - 0.} Route: IVP; Site: right antecubital; ca1 17:27 Follow up: Response: No adverse reaction; Pain is decreased; RASS: Alert and Calm (0) ca1 Outcome: 14:53 Discharge ordered by . praful 17:30 Discharged to home ambulatory. ca1 17:30 Condition: stable 17:30 Discharge instructions given to patient, Instructed on discharge instructions, follow up and referral plans. medication usage, Demonstrated understanding of instructions, follow-up care, medications, Prescriptions given X 3. 17:30 Patient left the ED. ca1 Signatures: Dispatcher [employer] Christ Garcia MD MD cha Hall, Patricia, RN RN ph AcPeg thurston RN RN [facility] Scottie, [place] ag5
--- NOTE | 2020-03-13 17:04 | EDPHYS ---
Physician Documentation [facility] Name: Samantha Hutchison Age: 35 yrs Sex: Female : 1985 Arrival Date: 03/10/2020 Time: 10:52 Bed 19 Private MD: Pradeep Malin ED Physician Christ Sams HPI: 03/10 13:25 This 35 yrs old Female presents to ER via Ambulatory with complaints of praful Diarrhea, Abdominal Cramping. 13:25 The patient presents to the emergency department with diarrhea, abdominal pain. Onset: praful The symptoms/episode began/occurred 3 day(s) ago. Possible causes: unknown, appy 1 month ago. The symptoms are aggravated by nothing. The symptoms are alleviated by nothing. Associated signs and symptoms: Pertinent positives: abdominal pain, diarrhea. Severity of symptoms: At their worst the symptoms were mild moderate in the emergency department the symptoms are unchanged. The patient has not experienced similar symptoms in the past. [employer]: 12:11 LMP 02/24/2020 ca1 Historical: - Allergies: 11:09 No Known Allergies; ph - Home Meds: 11:09 Klonopin Oral as needed [Active]; ph - PMHx: 11:09 Anxiety; ph - PSHx: 11:09 Appendectomy; ; Tubal ligation; ph - Immunization history:: Adult Immunizations unknown. - Social history:: Smoking status: Patient denies any tobacco usage or history of. Patient/guardian denies using alcohol. ROS: 13:28 Constitutional: Negative for fever, chills, and weight loss, Eyes: Negative for injury, praful pain, redness, and discharge, ENT: Negative for injury, pain, and discharge, Neck: Negative for injury, pain, and swelling, Cardiovascular: Negative for chest pain, palpitations, and edema, Respiratory: Negative for shortness of breath, cough, wheezing, and pleuritic chest pain, Back: Negative for injury and pain, : Negative for injury, bleeding, discharge, and swelling, MS/Extremity: Negative for injury and deformity, Skin: Negative for injury, rash, and discoloration, Neuro: Negative for headache, weakness, numbness, tingling, and seizure, Psych: Negative for depression, anxiety, suicide ideation, homicidal ideation, and hallucinations, Allergy/Immunology: Negative for hives, rash, and allergies, Endocrine: Negative for neck swelling, polydipsia, polyuria, polyphagia, and marked weight changes, Hematologic/Lymphatic: Negative for swollen nodes, abnormal bleeding, and unusual bruising. 13:28 Abdomen/GI: Positive for abdominal pain, diarrhea, of the right lower quadrant and left lower quadrant. Exam: 13:28 Constitutional: This is a well developed, well nourished patient who is awake, alert, praful and in no acute distress. Head/Face: Normocephalic, atraumatic. Eyes: Pupils equal round and reactive to light, extra-ocular motions intact. Lids and lashes normal. Conjunctiva and sclera are non-icteric and not injected. Cornea within normal limits. Periorbital areas with no swelling, redness, or edema. ENT: Nares patent. No nasal discharge, no septal abnormalities noted. Tympanic membranes are normal and external auditory canals are clear. Oropharynx with no redness, swelling, or masses, exudates, or evidence of obstruction, uvula midline. Mucous membranes moist. Neck: Trachea midline, no thyromegaly or masses palpated, and no cervical lymphadenopathy. Supple, full range of motion without nuchal rigidity, or vertebral point tenderness. No Meningismus. Chest/axilla: Normal chest wall appearance and motion. Nontender with no deformity. No lesions are appreciated. Cardiovascular: Regular rate and rhythm with a normal S1 and S2. No gallops, murmurs, or rubs. Normal PMI, no JVD. No pulse deficits. Respiratory: Lungs have equal breath sounds bilaterally, clear to auscultation and percussion. No rales, rhonchi or wheezes noted. No increased work of breathing, no retractions or nasal flaring. Back: No spinal tenderness. No costovertebral tenderness. Full range of motion. Female : Normal external genitalia. Skin: Warm, dry with normal turgor. Normal color with no rashes, no lesions, and no evidence of cellulitis. MS/ Extremity: Pulses equal, no cyanosis. Neurovascular intact. Full, normal range of motion. Neuro: Awake and alert, GCS 15, oriented to person, place, time, and situation. Cranial nerves II-XII grossly intact. Motor strength 5/5 in all extremities. Sensory grossly intact. Cerebellar exam normal. Normal gait. Psych: Awake, alert, with orientation to person, place and time. Behavior, mood, and affect are within normal limits. 13:28 Abdomen/GI: Inspection: abdomen appears normal, Bowel sounds: active, Palpation: mild abdominal tenderness, moderate abdominal tenderness, in the right lower quadrant and left lower quadrant, Liver: no appreciated palpable abnormalities, Hernia: not appreciated. Vital Signs: 11:05 BP 116 / 90; Pulse 97; Resp 18; Temp 99.0; Pulse Ox 100% on R/A; Weight 125.65 kg; ph Height 5 ft. 5 in. (165.10 cm); Pain 4/10; 12:08 BP 118 / 67; Pulse 89; Resp 17 S; Pulse Ox 98% on R/A; ca1 13:01 BP 105 / 62; Pulse 89; Resp 17 S; Pulse Ox 98% on R/A; ca1 13:51 BP 106 / 80; Pulse 69; Resp 15 S; Pulse Ox 100% on R/A; ca1 14:52 BP 110 / 82; Pulse 82; Resp 16 S; Pulse Ox 99% on R/A; ca1 15:45 BP 103 / 69; Pulse 72; Resp 16 S; Pulse Ox 98% on R/A; ca1 16:40 BP 102 / 73; Pulse 69; Resp 16 S; Pulse Ox 98% on R/A; ca1 17:28 BP 105 / 79; Pulse 76; Resp 16 S; Pulse Ox 98% on R/A; ca1 11:05 Body Mass Index 46.09 (125.65 kg, 165.10 cm) ph MDM: 11:58 Patient medically screened. [facility] 13:29 Data reviewed: vital signs, nurses notes, lab test result(s), EKG, radiologic studies, praful CT scan. 13:29 Differential diagnosis: Nonspecific abd pain, pancreatitis, diverticulitis. Data [facility] interpreted: electronic device monitor: not applicable for this patient encounter. Counseling: I had a detailed discussion with the patient and/or guardian regarding: the historical points, exam findings, and any diagnostic results supporting the discharge/admit diagnosis, lab results, radiology results. Medication response: 14:37 ED course: mild colitis, treated on abx, non toxic , benign exam, will cover with melva basilio and evelyn, follow up pcp, return if worse, follow up dr ruano. pt explained plan and all findings. 03/10 11:21 Order name: Urine Dipstick--Ancillary (enter results); Complete Time: 13:23 bd 03/10 11:21 Order name: Urine --Ancillary (enter results); Complete Time: 13:23 bd 03/10 12:12 Order name: Basic Metabolic Panel; Complete Time: 13:23 ca1 03/10 12:12 Order name: CBC with Diff; Complete Time: 13:23 ca1 03/10 12:12 Order name: Hepatic Function; Complete Time: 13:23 ca1 03/10 12:12 Order name: Lipase; Complete Time: 13:23 ca1 03/10 12:32 Order name: CBC Smear Scan; Complete Time: 13:23 EDMS 03/10 13:24 Order name: CT Abd/Pelvis - IV Contrast Only; Complete Time: 14:35 praful 03/10 14:37 Order name: Stool Culture [facility] 03/10 14:37 Order name: Fecal Leukocyte Stain [facility] 03/10 12:12 Order name: IV Saline Lock; Complete Time: 12:13 ca1 03/10 12:12 Order name: Labs collected and sent; Complete Time: 12:13 ca1 Administered Medications: 13:31 Drug: NS 0.9% 1000 ml Route: IV; Rate: 1 bolus; Site: right antecubital; ca1 14:44 Follow up: Response: No adverse reaction; IV Status: Completed infusion ca1 13:35 Drug: Zofran (Ondansetron) 4 mg Route: IVP; Site: right antecubital; ca1 14:44 Follow up: Response: No adverse reaction; Pain is decreased; RASS: Alert and Calm (0) ca1 13:37 Drug: morphine 2 mg {Note: RASS - 0.} Route: IVP; Site: right antecubital; ca1 14:44 Follow up: Response: No adverse reaction; Nausea is decreased ca1 14:58 Drug: morphine 2 mg {Note: rass - 0.} Route: IVP; Site: right antecubital; ca1 16:20 Follow up: Response: No adverse reaction; Pain is unchanged, physician notified; RASS: ca1 Alert and Calm (0) 15:00 Drug: Flagyl 500 mg Volume: 100 ml; Route: IVPB; Rate: 200 ml/hr; Infused Over: 30 ca1 mins; Site: right antecubital; 15:29 Follow up: Response: No adverse reaction; IV Status: Completed infusion ca1 15:30 Drug: Cipro 400 mg Volume: 200 ml; Route: IVPB; Infused Over: 60 mins; Site: right ca1 antecubital; 17:00 Follow up: Response: No adverse reaction; IV Status: Completed infusion ca1 16:20 Drug: morphine 4 mg {Note: rass - 0.} Route: IVP; Site: right antecubital; ca1 17:27 Follow up: Response: No adverse reaction; Pain is decreased; RASS: Alert and Calm (0) ca1 Disposition: 03/10/20 14:53 Discharged to Home. Impression: Diarrhea, unspecified, Other and unspecified noninfective gastroenteritis and colitis, Left sided colitis without complications. - Condition is Stable. - Discharge Instructions: Food Choices to Help Relieve Diarrhea, Adult, Diarrhea, Adult, Diarrhea, Adult, [id number], Colitis. - Prescriptions for Bentyl 20 mg Oral Tablet - take 1 tablet by ORAL route every 6 hours As needed; 20 tablet. Flagyl 500 mg Oral Tablet - take 1 tablet by ORAL route every 8 hours for 10 days; 30 tablet. Cipro 500 mg Oral Tablet - take 1 tablet by ORAL route every 12 hours for 7 days; 14 tablet. - Medication Reconciliation Form, Thank You Letter, Antibiotic Education, Prescription Opioid Use form. - Follow up: Pradeep Malin MD; When: 2 - 3 days; Reason: Recheck today's complaints, Continuance of care, Re-evaluation by your physician. Follow up: Uziel Ruano MD; When: 2 - 3 days; Reason: Recheck today's complaints, Re-evaluation by your physician. - Problem is new. - Symptoms have improved. Signatures: Dispatcher [employer] [facility] Christ Sams MD MD cha Hall, Patricia, RN RN Peg Duong RN RN ca1 Corrections: (The following items were deleted from the chart) 17:30 14:53 03/10/2020 14:53 Discharged to Home. Impression: Diarrhea, unspecified; Other and ca1 unspecified noninfective gastroenteritis and colitis; Left sided colitis without complications. Condition is Stable. Forms are Medication Reconciliation Form, Thank You Letter, Antibiotic Education, Prescription Opioid Use. Follow up: Pradeep Malin; When: 2 - 3 days; Reason: Recheck today's complaints, Continuance of care, Re-evaluation by your physician. Follow up: Uziel Ruano; When: 2 - 3 days; Reason: Recheck today's complaints, Re-evaluation by your physician. Problem is new. Symptoms have improved. praful
== END 2020-03-10 17:30 | disposition home or self-care (01) ==
LOC: ER 10:50
DX: K52.9 Noninfective gastroenteritis and colitis, unspecified (principal); K51.50 Left sided colitis without complications; F41.9 Anxiety disorder, unspecified
CPT/HCPCS: 36415; 74177; 80048; 80076; 81003; 81025; 83690; 85025; 87045; 87046; 89055; 96361; 96365; 96367; 96375; 99284; J0744; J2270; J2405; J7030; Q9967